=== PATIENT | female | born 1960 | race Caucasian/White ===

== ENCOUNTER 2017-01-16 06:05 | Day surgery (SDC) | payer MEDICAID ==
[~2017-01-16] VITALS: Ht 157.5 cm; Wt 56.7 kg
--- NOTE | ~2017-01-16 | OP ---
PATIENT NAME: LEONCIO GARZA MEDICAL RECORD: [id number] :58 LOCATION:D.OPS ADMISSION DATE: SURGEON: OLENA WOODSON MD DATE OF OPERATION: 01/16/2017 PREOPERATIVE DIAGNOSIS: Symptomatic gallstones. POSTOPERATIVE DIAGNOSES: Symptomatic gallstones with hepatomegaly, also unusual appearance to the distal common bile duct. The common bile duct was dilated. It came to a very tight taper at the end and the patient will require follow up ERCP. PROCEDURES: 1. Laparoscopic cholecystectomy. 2. Intraoperative cholangiography without immediate surgeon interpretation. 3. An 18-gauge core needle liver biopsies. SURGEON: Olena Woodson MD SILICA MIXER OPERATOR: None. BLOOD LOSS: Minimal. ANESTHESIA: General. COMPLICATIONS: None. The risks, possible complications and alternatives to procedure were explained to the patient. She elects to proceed. OPERATIVE COURSE: The patient was conveyed to the operating room electively on 01/16/2017. General anesthesia was induced by the anesthesia staff. The abdomen was sterilely prepped and draped. A small skin ganga was accomplished in the left upper quadrant. CO2 insufflation was begun. Once a sufficient pneumoperitoneum had been achieved, a 5-mm trocar was inserted through an incision in the right upper quadrant. Another 5-mm trocar was inserted through an incision in the right upper quadrant. Another 5-mm trocar was inserted through an incision in the epigastrium. Also, a 12-mm trocar was inserted through a hernia defect at the umbilicus. During insertion of the Veress needle and all trocars, there appeared to have been no injury to the bowels, any intraperitoneal or retroperitoneal structures. Abdominal survey was undertaken. No adhesions were noted except around the gallbladder where the gallbladder was essentially encased with adhesions. The indication for liver biopsy was hepatomegaly. Under laparoscopic guidance, I percutaneously accessed the right upper quadrant utilizing an 18-gauge core needle liver biopsy device. Cores were obtained over the convexity of the liver. The biopsy sites were made hemostatic with electrocautery. I took down some of the adhesions from the gallbladder. I advanced the cholangiogram trocar. I punctured the fundus of the gallbladder. Under real time fluoroscopy, static fluoroscopic images were obtained. They are sent to the radiologist for interpretation. The radiologist called back and stated that the common bile duct was abnormal in appearance. The duct was dilated and distally, there was an abrupt cut off and only a trickle of dye that actually OPERATIVE REPORT [id number] LEONCIO GARZA entered the duodenum. The radiologist stated that this could be due to tumor stricturing, a stone or edema. It is for this reason, I am going to refer the patient to Dr. Buster Barnhart for an ERCP. The cholangiogram trocar was removed. The gallbladder was grasped and retracted anteriorly. The infundibulum was grasped and retracted laterally. Blunt dissection was begun on the triangle of Calot. One cystic artery and 1 cystic duct were identified. These were clipped multiply and divided between clips. The gallbladder was placed within an Endobag retrieval device and was withdrawn through the umbilical fascia defect. The 12-mm trocar was replaced and the abdomen reinsufflated. I irrigated and aspirated in the right upper quadrant. There was no bleeding even at low pressure of 8. Mei was added to the gallbladder fossa for additional hemostasis. All trocars were removed and the abdomen desufflated. The umbilical hernia defect was closed with [id number] 0 Vicryl sutures. The skin at the umbilicus was closed with interrupted 4-0 Vicryl Rapide sutures. The other skin incisions were closed with interrupted intracuticular 3-0 Vicryls. Benzoin and Steri-Strips were applied. The patient was then extubated and conveyed to post-anesthesia care unit where she was in stable condition. She is going to be dismissed home on Ultram for pain as she is intolerant of hydrocodone. We will make an appointment to see Dr. Buster Barnhart in his office in preparation for an ERCP. TRANSINT:[id number] Voice Confirmation ID: [id number] DOCUMENT ID: [id number] OLENA WOODSON MD CC: MARIALUISA STEVEN MD and BUSTER BARNHART DO [id number] DICTATION DATE: 01/16/17 1520 PROMOTIONS COORDINATOR: 01/17/17 0142 [facility] 01/16/17 [id number] [place] [address]
--- NOTE | ~2017-01-16 | HP ---
PATIENT: LEONCIO GARZA MEDICAL RECORD: [id number] ACCOUNT: [id number] LOCATION:D.OPS : 58 ADMISSION DATE: 01/16/17 HISTORY AND PHYSICAL EXAMINATION ADDENDUM The patient has a history and physical examination on the chart. There has been no change in the history and physical examination since I saw the patient. We are going to plan for laparoscopic cholecystectomy, intraoperative cholangiography, and possible liver biopsy. TRANSINT:[id number] Voice Confirmation ID: [id number] DOCUMENT ID: [id number] OLENA WOODSON MD CC: MARIALUISA STEVEN MD [id number] DICTATION DATE: 01/16/17 1515 TELESALES SPECIALIST: 01/16/17 1741 [facility] 01/16/17 [id number] [place] [address]
[~2017-01-16 06:05] MED LIST: BAYER CHEWABLE81 MG PO; CELEXA40 MG PO; CLARITIN 10 MG10 MG PO; HYDROCODON-ACE1 EAC7 PO; PAXIL10 MG PO; PEPCID20 MG PO; PRAVACHOL40 MG PO; VENTOLIN HFA18 GM INH; XANAX1 MG PO; ZETIA10 MG PO
[2017-01-16 08:00] VITALS: BP 120/59; Ht 157.5 cm; Wt 56.7 kg
[2017-01-16 08:05] LABS: HEMATOCRIT 42.5 % (36.0-48.0); HEMOGLOBIN 14.8 g/dL (12-16); MCH 32.4 pg (26.0-34.0); MCHC 34.8 g/dL (31.0-37.0); MEAN PLATELET VOLUME 10.4 fL (7.4-10.4); RBC 4.57 10x6/uL (4.00-5.40); RDW 12.5 % (11.5-14.5); WBC 5.9 10x3/uL (4.8-10.8)
--- NOTE | 2017-01-16 18:48 | NUR ---
1550 VOMITING SHE COMES INTO THE ROOM LINEN CHANGE DONE ASKING FOR PHENRGAN 1600 SLEEPING WHEN WAKING UP START SAYING SHE SICK AND NEED PHENAGAN NO VOMITING NOTED AT THIS TIME 1630 STILL SLEEPING 1700 AWOKE UP PATIENT STATED SHE WAS SICK REFUSE ZOFRAN WANTS PHENRGAN IV , DR WOODSON CALLED OK TO GIVE PO RETUNED TO ROOM PT SPLEEPING 1730 NO CHANGE 1745 IV DC WITH CATHER TIP INTACT 1800 AWAKING DRY HEAVING REFUSE PHENRGAN PO, GIVING 12.5 IM LEFT UPPER OUTER QURATING , 1815 IV
== END 2017-01-16 18:30 | disposition home or self-care (01) ==
LOC: D.OPS 06:05 → D.PAN 08:15 → D.OPS 08:20 → D.PAN 08:30 → D.OPS 09:00
PROVIDERS: Anesthesiology
DX: K80.10 Calculus of gallbladder with chronic cholecystitis without obstruction (principal); K76.0 Fatty (change of) liver, not elsewhere classified; K83.8 Other specified diseases of biliary tract; K42.9 Umbilical hernia without obstruction or gangrene; Z88.1 Allergy status to other antibiotic agents; Z88.5 Allergy status to narcotic agent; Z01.812 Encounter for preprocedural laboratory examination

== ENCOUNTER 2017-02-21 12:27 | Day surgery (SDC) | payer MEDICAID ==
[~2017-02-21] VITALS: Ht 157.5 cm; Wt 52.2 kg
[2017-02-21 13:09] VITALS: Ht 157.5 cm; Wt 52.2 kg
[2017-02-21 14:01] LABS: HEMATOCRIT 41.1 % (36.0-48.0); HEMOGLOBIN 14.5 g/dL (12-16); MCHC 35.3 g/dL (31.0-37.0); MCV 90.7 fL (80.0-100.0); MEAN PLATELET VOLUME 11.3 fL (7.4-10.4); RBC 4.53 10x6/uL (4.00-5.40); RDW 12.4 % (11.5-14.5); WBC 6.7 10x3/uL (4.8-10.8)
[2017-02-21 15:08] LABS: CALC OSMOLALITY 273 mosm/kg (275-300); CARBON DIOXIDE 21.6 mmol/L (21.0-32.0); CHLORIDE - SERUM 103 mmol/L (98-107); CREATININE - SERUM 0.3 mg/dL (0.6-1.3); GLUCOSE 92 mg/dL (74-106); POTASSIUM - SERUM 4.8 mmol/L (3.5-5.1); SODIUM 138 mmol/L (136-145); UREA NITROGEN 7 mg/dL (7-18); eGFR NON AFRICAN AMERICAN > 90 mL/min (90-120)
--- NOTE | 2017-02-21 17:05 | NUR ---
UPON D/C FROM PACU, PT N/V. BACK ON MONITOR AND MED WITH PHENERGAN, SEE MAR. WILL D/C WHEN PT NAUSEA IMPROVES.
== END 2017-02-21 19:42 | disposition home or self-care (01) ==
LOC: D.OPS 12:27
PROVIDERS: Anesthesiology
DX: K83.1 Obstruction of bile duct (principal); Z01.812 Encounter for preprocedural laboratory examination

== ENCOUNTER → 2018-09-13 09:42 | Outpatient (CLI) | payer MEDICAID ==
[2017-02-21 13:09] VITALS: BMI 21.0
== END | disposition home or self-care (01) ==
LOC: D.CT 09:42
DX: I99.8 Other disorder of circulatory system (principal)